=== PATIENT | female | born 1965 | race Caucasian/White ===

== ENCOUNTER → 2023-07-01 16:07 | Outpatient (REF) | payer BC, SELFPAY | LOC: WDC 16:07 | PROVIDERS: ATTENDING PHYSICIAN Internal Medicine | DX: Z12.31 Encounter for screening mammogram for malignant neoplasm of breast (principal) | CPT/HCPCS: 77063; 77067 ==

== ENCOUNTER → 2024-07-06 16:15 | Outpatient (REF) | payer BC, SELFPAY | LOC: WDC 16:15 | PROVIDERS: ATTENDING PHYSICIAN Internal Medicine | DX: Z12.31 Encounter for screening mammogram for malignant neoplasm of breast (principal) | CPT/HCPCS: 77063; 77067 ==

== ENCOUNTER 2024-11-06 19:26 | Emergency (ER) | payer BC, SELFPAY ==
[2024-11-06 19:35] VITALS: BP 116/76
--- NOTE | 2024-11-06 22:51 | ED.GENMED ---
History of Present Illness
General
Chief Complaint: Head Injury
Source: patient
Exam Limitations: none
Time Seen by Provider: 11/06/24 19:44
Nursing documentation reviewed up to this point in time: agreed with
History of Present Illness
History of Present Illness:
Patient states the pharmacy gate came down ontoher head. No LOC. Initially had no complaints. Now reports neck tightness. Injury occured today. No radiation of pain, no weakness in extremities.
Past History
Past History
ED Past Medical History: None
Social History
Tobacco: Non-smoker
Alcohol: None
Personal: Single
Living: with family
Review of Systems
Review of Systems
Allergies reviewed?: Yes
All Other Systems: ROS reviewed and negative except as documented in HPI and ROS
Constitutional: Reports no symptoms
EENT: Reports no symptoms
Respiratory: Reports no symptoms
Cardiac: Reports no symptoms
ABD/GI: Reports no symptoms
Musculoskeletal: Reports neck pain
Skin: Reports no symptoms
Neurological: Reports no symptoms
Psychiatric: Reports no symptoms
Phy Exam
General Physical Exam
General Presentation: well appearing and no apparent distress
General age: appears stated age
General Skin: warm and dry
General Habitus: normal
Eye Exam
Eye Exam: PERRL, EOMI and conjunctiva normal
Neurological Exam
Neurological Exam: alert, oriented x3, CN II-XII intact, no motor deficits, no sensory deficits, speech normal and normal gait
Musculoskeletal Exam
Musculoskeletal Exam: full ROM and neuro vasc intact
Skin Exam
Skin Exam: normal color, warm/dry and no rash
Psychiatric Exam
Psychiatric Exam: normal mood/affect
Course
Orders/Labs/Results
Orders:
Orders
11/06/24 20:13
CR Cervical Spine 4 Or 5 Vw Urgent
Comment:
Reason For Exam: trauma
Vital Signs
Initial and Last Documented VS:
Initial Vital Signs
Temp Pulse Resp BP Pulse Ox
98.2 F 74 18 116/76 98
11/06/24 19:35 11/06/24 19:35 11/06/24 19:35 11/06/24 19:35 11/06/24 19:35
Last Documented Vital Signs
Temp Pulse Resp BP Pulse Ox
98.2 F 74 18 116/76 98
11/06/24 19:35 11/06/24 19:35 11/06/24 19:35 11/06/24 19:35 11/06/24 22:56
*Radiology
Radiology exam reviewed: radiology read reviewed
*Pulse Oximetry
SaO2: 98
Oxygen Mode of Delivery: Room air
Patient hypoxic: no
*Critical Care Note
Total Time (30-74mins, 75-104mins- exclusive of procedures): Not Applicable
Update Note
Update Note:
Patient to ED after gate at pharmacy closed on her head. No LOC. Neurologically she is baseline. Complains of neck pain. No radiation of pain , no weakness in extremities. Xray neg for fracture. Will discharge home, continue ice, ibuprofen.
she will follow up with PCP. GIven instsructions on s/s to return to ED and she is agreeable to plan.
ED Attending Note
-
Portions of this chart may have been created with voice recognition software.� Occasional wrong word or��sound alike� substitutions may have occurred due to the inherent limitations of voice recognition software.
Discharge Plan
Departure
Patient Disposition: Home (Routine Discharge)
Date of Disposition: 11/06/24
Time of Disposition: 21:39
Patient with high blood pressure during this ER visit?: No
Condition: Good
Covid-19: Not Applicable
Discharge Problem:
Cervical sprain
Instructions: Cervical Sprain ED
Prescriptions:
No Action
prednisone 10 MG tablet
10 mg PO .TAPER Qty: 30 0RF
Rx Instructions:
Take 50mg daily x2days, 40mg daily x2days, 30mg daily x2days, 20mg daily x2days, 10mg daily x2days
morphine 15 MG tablet extended release
15 mg PO Q12 Qty: 10 0RF
azithromycin 250 MG tablet
250 mg PO DAILY Qty: 4 0RF
ibuprofen 600 MG tablet
600 mg PO Q6H PRN (Reason: pain) Qty: 20 0RF
Referrals:
UNKNOWN - PT DOES,NOT KNOW [Family Provider]
Activity Restrictions/Additional Instructions:
FOllow up with your family doctor
Interventions
Interventions:
*Risk Screen - Suicide Last Done: 11/06/24 19:35
*General Assessment Last Done: 11/06/24 20:11
*Neglect/Abuse Screening Last Done: 11/06/24 19:35
*ED- Fall Risk Assessment Last Done: 11/06/24 20:11
*ED COVID-19 Vaccine History Last Done: 11/06/24 20:11
*Nursing Disposition Last Done: 11/06/24 21:43
ED- Neurological Assessment Last Done: 11/06/24 20:11
ED-Skin Assessment Last Done: 11/06/24 20:11
Discharge Date and Time
Discharge Date/Time: 11/06/24 21:43
Print Language: [place]
Musculoskeletal Injury Exam
Musculoskeletal Injury Exam
Posterior Neck:
Pain with Movement?: Moderate
Tender to palpation?: Mild
Soft tissue swelling?: None
External deformity and angulation?: None
Joint effusion?: None
Contusion?: None
Hematoma-local bleeding into tissue?: None
Strain- Sprain- Tear (Connective tissue injury)?: Moderate
Crepitus with movement?: No
Joint instability?: No
Malalignment/deformity?: No
Range of motion: Full
Distal skin color and temperature: normal-warm & good color
Capillary Refill: normal
Normal distal neurovascular exam?: Yes
== END 2024-11-06 21:43 | disposition home or self-care (01) ==
LOC: EMR 19:26
PROVIDERS: EMERGENCY PHYSICIAN Emergency Medicine
DX: S13.9XXA Sprain of joints and ligaments of unspecified parts of neck, initial encounter (principal); W20.8XXA Other cause of strike by thrown, projected or falling object, initial encounter; Y92.512 Supermarket, store or market as the place of occurrence of the external cause
CPT/HCPCS: 99283; 72050